=== PATIENT | male | born 1950 | race Caucasian/White ===

== ENCOUNTER 2021-05-15 09:37 | Observation (INO) ==
[2021-05-15 10:11] LABS: Basophils % 0.2 % (0.0-0.8); Eosinophils # 0.1 10*3/uL (0.0-0.87); Eosinophils % 1.4 % (0.00-10.9); Hematocrit 38.1 VOL% (42.0-52.0); Hemoglobin 12.9 GM/DL (14.0-18.0); Immature Granulocytes % 0.5 %; Immature Granulocytes Absolute 0.04 #; Lymphocytes # 1.2 10*3/uL (1.4-4.0); Lymphocytes % 14.7 % (21.2-54.2); Mean Corpuscular HGB Conc 33.9 GM/DL (32-36); Mean Platelet Volume 10.3 FL (9.6-12.0); Monocytes % 11.1 % (1.7-12.7); Neutrophils % 72.1 % (38.7-73.9); Platelet Count 143 T/CUMM (130-400); Red Blood Count 3.97 MC/CUMM (3.8-5.5); Red Cell Distribution Width 13.8 % (9.3-17.3); White Blood Count 8.1 T/CUMM (4-12)
[2021-05-15 10:19] LABS: INR 1.2; PT Patient Result 12.9 SECS (10.5-12.0); Partial Thromboplastin Time 31.2 SECS (23.9-33.8)
[2021-05-15 10:34] LABS: Albumin 3.5 G/DL (3.4-5.0); Bilirubin,Total 1.2 MG/DL (0.20-1.00); Calcium 9.1 MG/DL (8.5-10.1); Osmolality,Calculated 278.8 MOS/KG (273-304); Total Protein 7.9 G/DL (6.4-8.2)
[2021-05-15] MEDS ORDERED: ONDANSETRON 4 MG/2 ML VIAL IV STA (10:47)
[2021-05-15] MEDS ORDERED: HYDROmorphone 2 MG/1 ML VIAL IV STA (10:47)
[2021-05-15] MEDS ORDERED: hydrALAZINE 20 MG/1 ML VIAL IV PRN (12:02)
[2021-05-15] MEDS ORDERED: DEXTROSE 50% 25 GM/50 ML VIAL IV PRN (12:02)
[2021-05-15] MEDS ORDERED: GLUCAGON 1 MG VIAL IM PRN (12:02)
[2021-05-15] MEDS ORDERED: ACETAMINOPHEN 325 MG TABLET PO PRN (12:02)
[2021-05-15] MEDS ORDERED: ONDANSETRON 4 MG/2 ML VIAL IV PRN (12:02)
[2021-05-15] MEDS: ENOXAPARIN 40 MG/0.4 ML SYRINGE SUBCUT SCH (12:55)
[2021-05-15] MEDS: LACTATED RINGERS 1,000 ML IV SCH ×2 (12:55→23:10)
[2021-05-15] MEDS ORDERED: CYCLOBENZAPRINE 10 MG TABLET PO PRN (13:39)
[2021-05-15] MEDS ORDERED: KETOROLAC 30 MG/1 ML VIAL IV STA (13:44)
[2021-05-15] MEDS ORDERED: CYCLOBENZAPRINE 10 MG TABLET PO ONE (13:44)
[2021-05-15] MEDS: cloNIDine 0.1 MG TABLET PO SCH (20:18)
[2021-05-15] MEDS: LOSARTAN 50 MG TABLET PO SCH (20:18)
[2021-05-15] MEDS: METAXALONE 800 MG TABLET PO SCH ×2 (20:18→21:35)
[2021-05-16] MEDS: LACTATED RINGERS 1,000 ML IV SCH ×2 (00:03→09:59)
[2021-05-16] MEDS: MORPHINE 2 MG/1 ML SYRINGE IV PRN ×2 (00:03→06:12)
[2021-05-16 05:18] LABS: Basophils % 0.2 % (0.0-0.8); Eosinophils # 0.1 10*3/uL (0.0-0.87); Eosinophils % 1.9 % (0.00-10.9); Hematocrit 32.5 VOL% (42.0-52.0); Immature Granulocytes % 0.5 %; Immature Granulocytes Absolute 0.03 #; Lymphocytes # 0.9 10*3/uL (1.4-4.0); Lymphocytes % 14.5 % (21.2-54.2); Mean Corpuscular HGB Conc 33.5 GM/DL (32-36); Mean Corpuscular Volume 96.7 FL (87-102); Neutrophils % 65.9 % (38.7-73.9); Red Blood Count 3.36 MC/CUMM (3.8-5.5); Red Cell Distribution Width 13.8 % (9.3-17.3); White Blood Count 6.5 T/CUMM (4-12)
[2021-05-16 05:39] LABS: Hemoglobin 10.9 GM/DL (14.0-18.0); Osmolality,Calculated 280.5 MOS/KG (273-304); Platelet Count 113 T/CUMM (130-400); Risk Ratio 3.68; VLDL Cholesterol 41.2 MG/DL
[2021-05-16] MEDS ORDERED: LIDOCAINE 1%/EPI INJ 20 ML VIAL ONE (06:01)
[2021-05-16] MEDS ORDERED: TISSUE ADHESIVE 1 EACH APPLICATOR TOP ONE ×2 (06:01→08:51)
[2021-05-16] MEDS ORDERED: LIDOCAINE 1%/EPI INJ 20 ML VIAL INFILTRAT ONE (08:50)
[2021-05-16] MEDS ORDERED: THIAMINE 100 MG TABLET PO SCH (09:00)
[2021-05-16] MEDS ORDERED: FOLIC ACID 1 MG TABLET PO SCH (09:00)
[2021-05-16] MEDS ORDERED: PANTOPRAZOLE 40 MG TABLET PO SCH (09:00)
[2021-05-16] MEDS ORDERED: METOPROLOL SUCCINATE XL 50 MG TABLET PO SCH (09:00)
[2021-05-16] MEDS ORDERED: ASPIRIN EC 81 MG TABLET PO SCH (09:00)
[2021-05-16] MEDS: METAXALONE 800 MG TABLET PO SCH ×3 (09:59→15:12)
[2021-05-16] MEDS: cloNIDine 0.1 MG TABLET PO SCH (10:32)
[2021-05-16] MEDS: LOSARTAN 50 MG TABLET PO SCH (10:32)
[2021-05-16 11:59] VITALS: BP 146/75
[2021-05-16] MEDS ORDERED: KETOROLAC 30 MG/1 ML VIAL IV ONE (13:06)
[2021-05-16] MEDS: ENOXAPARIN 40 MG/0.4 ML SYRINGE SUBCUT SCH (13:33)
[2021-05-16] MEDS ORDERED: ROSUVASTATIN 10 MG TABLET PO SCH ×2 (21:00)
[2021-05-17] MEDS ORDERED: CLOPIDOGREL 75 MG TABLET PO SCH (09:00)
== END 2021-05-16 17:58 | disposition home or self-care (01) ==
LOC: N.EDINP 09:37 → N.ED 09:37 → N.TELEN 14:32 → N.EDINP 14:32
PROVIDERS: ADMIT Internal Medicine; ATTEND Internal Medicine